=== PATIENT | male | born 1965 | race Caucasian/White ===

== ENCOUNTER 2018-05-18 19:48 | Emergency (ER) | payer SELFPAY ==
[~2018-05-18] VITALS: Ht 172.7 cm; Wt 81.6 kg
[2018-05-18 19:48] VITALS: BP 118/82
--- NOTE | 2018-05-18 20:45 | NUR ---
ED Nurse Note: Pt's family refused to draw blood.
--- NOTE | 2018-05-18 21:00 | NUR ---
ED Nurse Note: No urine was collected at this time, will try later.
--- NOTE | 2018-05-18 21:19 | Emergency Room Report ---
History of Present Illness General Chief Complaint: Alcohol Intoxication Source: Patient, Family Member, EMS Present Illness HPI Patient 52-year-old male brought in by EMS after increased altered mental status. Patient reports having 3 alcoholic drinks immediately prior to onset of altered mental status. Patient denies any recent trauma. He reports having prior similar symptoms in the past. Patient denies any current complaints and states he feels normal. Allergies: Coded Allergies: No Known Allergies (Unverified , 05/18/18) Patient History Reviewed Nursing Documentation: PMH: Agreed; PSxH: Agreed Nursing Documentation-PMH Hx Diabetes: Yes Review of Systems All Other Systems: limited Physical Exam Vital Signs Date Time Temp Pulse Resp B/P (MAP) Pulse Ox O2 Delivery O2 Flow Rate FiO2 05/18/18 19:38 98.1 76 16 117/80 95 Room Air General Appearance: well appearing, no apparent distress, alert Head: normocephalic, atraumatic ENT: hearing grossly normal, normal voice Neck: full range of motion, supple Respiratory: no respiratory distress, speaking full sentences Musculoskeletal: no calf tenderness Neurologic: oriented x3, other - slurred speech Psychiatric: mood/affect normal Skin: no rash Medical Decision Making Diagnostic Impression: Primary Impression: Acute alcoholic intoxication ER Course Patient presented for altered mental status. Differential diagnosis include was not limited to alcohol intoxication, hypoglycemia, hepatic encephalopathy, CVA among others. Because of complexity of patient's case laboratory testing and imaging studies were ordered. Patient was noted to have recent alcohol intake. Patient appears to be somewhat intoxicated with alcohol. Patient was observed in the emergency department and family refused laboratory testing. At the time of discharge patient was awake alert oriented and ambulatory without assistance. Last Vital Signs Date Time Temp Pulse Resp B/P (MAP) Pulse Ox O2 Delivery O2 Flow Rate FiO2 05/18/18 19:38 98.1 76 16 117/80 95 Room Air Status: improved Disposition: HOME, SELF-CARE Condition: Stable Scripts Unable to Obtain Active Prescriptions or Reported Meds Patient Instructions: Alcohol Intoxication, [id number] Apolinar Lima MD May 18, 2018 21:19
[2018-05-18 21:21] VITALS: BP 112/78
--- NOTE | 2018-05-18 21:21 | NUR ---
ER DISCHARGE NOTE: Patient is cleared to be discharged per Dr. Lima. Pt is aox3-4 on room air with stable vital signs. Pt and his friend were given D/c and prescription instructions, pt was able to verbalize understanding, pt id band and iv site removed without complications; pt is able to ambulate with steady gait, pt took all belongings, accompanied by his friend.
[2018-05-18 21:58] LABS: BASOPHILS % (AUTO) 0.7 % (0.0-2.0); EOSINOPHILS % (AUTO) 1.7 % (0.0-3.0); HEMATOCRIT 46.9 % (42.0-52.0); LYMPHOCYTES % (AUTO) 23.2 % (20.0-45.0); MEAN CORPUSCULAR VOLUME 92 FL (80-99); MONOCYTES % (AUTO) 5.5 % (1.0-10.0); PLATELET COUNT 195 K/UL (150-450); RED BLOOD COUNT 5.11 M/UL (4.70-6.10); RED CELL DISTRIBUTION WIDTH 11.3 % (11.6-14.8); WHITE BLOOD COUNT 13.4 K/UL (4.8-10.8)
[2018-05-18 22:04] LABS: ANION GAP 13 mmol/L (5-15); BLOOD UREA NITROGEN 17 mg/dL (7-18); CALCIUM 8.8 MG/DL (8.5-10.1); CARBON DIOXIDE 25 MMOL/L (21-32); CHLORIDE 103 MMOL/L (98-107); POTASSIUM 3.2 MMOL/L (3.5-5.1); SODIUM 141 MMOL/L (136-145)
[2018-05-18 22:09] LABS: ALANINE AMINOTRANSFERASE 20 U/L (12-78); ALBUMIN/GLOBULIN RATIO 1.3 (1.0-2.7); ALKALINE PHOSPHATASE 62 U/L (46-116); ASPARTATE AMINO TRANSFERASE 16 U/L (15-37); BILIRUBIN,TOTAL 0.2 MG/DL (0.2-1.0)
== END 2018-05-18 21:21 | disposition home or self-care (01) ==
LOC: EDBD 19:48 → EMR 20:00
DX: F10.129 Alcohol abuse with intoxication, unspecified (principal); R41.82 Altered mental status, unspecified
CPT/HCPCS: 36415; 80053; 85025; 96360; 99284; G0480; 80329